=== PATIENT | male | born 1985 | race Caucasian/White ===

== ENCOUNTER 2017-04-10 18:28 | Emergency (ER) | payer SELFPAY ==
[2017-04-10 20:15] VITALS: BP 151/103
[2017-04-10 20:27] LABS: microscopic required? YES; urine erythrocyte 2+ (NEGATIVE)
== END 2017-04-10 20:15 | disposition home or self-care (01) ==
LOC: ED 18:28
PROVIDERS: Specialist
DX: N39.0 Urinary tract infection, site not specified (principal)